=== PATIENT | female | born 1935 | race Two or more races ===

== ENCOUNTER 2017-04-21 12:48 | Emergency (ER) | payer MEDICARE, OTHER ==
[2017-04-21 12:59] VITALS: BMI 23.4
--- NOTE | 2017-04-21 13:22 | ED PDOC ---
Arrival/HPI - General Chief Complaint: Trauma Time Seen by Provider: 04/21/17 13:10 - History of Present Illness Narrative History of Present Illness (Text): 04/21/17 13:18 A 81 year old female, whose past medical history includes hypertension and hyperlipidemia, presents to the emergency department complaining of head trauma after a fall prior to arrival. Patient reports she was carrying heavy groceries and became unsteady, causing her to fall and hit her forehead. She passed out. She states she was able to get up after fall but felt dizzy. Patient denies any other injuries, headache, vision changes, neck pain, fever, chills, nausea, vomiting, abdominal pain, back pain, chest pain, shortness of breath or any other complaints. PMD: Dr. Del Angel Time/Duration: Prior to Arrival Context: Tripped Past Medical History - Provider Review Nursing Documentation Reviewed: Yes - Pulmonary Hx Respiratory Disorders: No - Neurological Hx Neurological Disorder: No - HEENT Hx HEENT Disorder: No - Renal Hx Renal Disorder: No - Endocrine/Metabolic Hx Endocrine Disorders: No - Hematological/Oncological Hx Blood Disorders: No - Integumentary Hx Dermatological Disorder: No - Musculoskeletal/Rheumatological Hx Musculoskeletal Disorders: No - Gastrointestinal Hx Gastrointestinal Disorders: No - Genitourinary/Gynecological Hx Genitourinary Disorders: No - Psychiatric Hx Psychophysiologic Disorder: No Hx Substance Use: No - Anesthesia Hx Anesthesia: No Family/Social History - Physician Review Nursing Documentation Reviewed: Yes Family/Social History: No Known Family HX Smoking Status: Current Some Days Smoker Hx Alcohol Use: No Hx Substance Use: No Allergies/Home Meds Allergies/Adverse Reactions: Allergies No Known Allergies Allergy (Unverified 04/21/17 13:18) Home Medications: Home Meds Medication Instructions Recorded Confirmed Unobtainable 04/21/17 04/21/17 Review of Systems - Physician Review All systems were reviewed & negative as marked: Yes - Review of Systems Constitutional: Other (Head trauma). absent: Fevers, Night Sweats Eyes: absent: Vision Changes Respiratory: absent: SOB Cardiovascular: Syncope. absent: Chest Pain Gastrointestinal: absent: Abdominal Pain, Nausea, Vomiting Musculoskeletal: absent: Back Pain, Neck Pain Neurological: Dizziness. absent: Headache Physical Exam Vital Signs Reviewed: Yes Vital Signs Temp Pulse Resp BP Pulse Ox 04/21/17 16:35 98.2 F 60 17 179/72 H 98 04/21/17 16:26 60 229/125 H 04/21/17 16:00 98.0 F 70 19 229/125 H 98 04/21/17 14:48 98.0 F 60 18 160/86 H 96 04/21/17 12:59 97.8 F 65 18 168/86 H 100 04/21/17 12:48 97.8 F 60 18 168/86 H 100 Temperature: Afebrile Blood Pressure: Hypertensive Pulse: Regular Respiratory Rate: Normal Appearance: Positive for: Well-Appearing, Non-Toxic, Comfortable Pain Distress: None Mental Status: Positive for: Alert and Oriented X 3 - Systems Exam Head: Present: Swelling (mild to moderate), Abrasion (Linear abrasion to mid- frontal area of forehead with mild to moderate swelling ) Pupils: Present: PERRL Extroacular Muscles: Present: EOMI Conjunctiva: Present: Normal Mouth: Present: Moist Mucous Membranes Pharnyx: Present: Normal. No: ERYTHEMA, EXUDATE Neck: Present: Normal Range of Motion. No: MIDLINE TENDERNESS, Paraspinal Tenderness Respiratory/Chest: Present: Clear to Auscultation, Good Air Exchange. No: Respiratory Distress, Accessory Muscle Use Cardiovascular: Present: Regular Rate and Rhythm, Normal S1, S2. No: Murmurs Abdomen: Present: Normal Bowel Sounds. No: Tenderness, Distention, Peritoneal Signs Back: Present: Normal Inspection. No: Midline Tenderness, Paraspinal Tenderness Upper Extremity: Present: Normal Inspection, Normal ROM, NORMAL PULSES, Neurovascularly Intact. No: Cyanosis, Edema, Tenderness, Swelling Lower Extremity: Present: Normal Inspection, NORMAL PULSES, Normal ROM, Neurovascularly Intact. No: Edema, CALF TENDERNESS, Tenderness, Swelling, Temperature Abnormalties Neurological: Present: GCS=15, CN II-XII Intact, Speech Normal, Motor Func Grossly Intact, Normal Sensory Function, Normal Cerebellar Funct Skin: Present: Warm, Dry, Normal Color. No: Rashes Psychiatric: Present: Alert, Oriented x 3, Normal Insight, Normal Concentration Medical Decision Making ED Course and Treatment: 04/21/17 13:18 Impression: A 81 year old female with head trauma after fall and syncope prior to arrival. Normal neuro exam. Evidence of forehead injury is noted. Plan: -- Head CT -- Chest xray -- EKG -- Labs -- Urinalysis -- Reassess and disposition Progress Notes: Report Date: 04/21/17 17:33 Procedure: CT Head without contrast Dictated by Sugey Torres MD Impression: Generalized atrophy. Nonspecific white matter changes. 8 mm probable left basal ganglia lacunar infarct. Intracranial atherosclerosis. Small fluid level in the right maxillary sinus. Correlate clinically for possible acute sinusitis. 04/21/17 18:22 Patient with syncopal episode, possibly mechanical but unclear. Her EKG results are noted and BP was elevated in the ED despite having taken her antihypertensive meds, requiring IV hydralazine with improvement. Old lacunar infarct on CT but no acute m/s/b. Given syncope of unknown origin, lacunar infarct on CT brain with uncontrolled hypertension, the patient needs further observation on tele but is refusing. She is however refusing to stay in the hospital. She understands the risks explained to her, including stroke, heart attack, permanent disability, and . She is fully awake, alert, and oriented x 3 and is signing out against medical advice. She signed the ama sheet. - Lab Interpretations Lab Results: 04/21/17 13:40 04/21/17 13:40 Lab Results 04/21/17 13:40: Sodium 141, Potassium 4.2, Chloride 99, Carbon Dioxide 32, Anion Gap 14, BUN 26 H, Creatinine 1.4 H, Est GFR ( Amer) 44, Est GFR ( Non-Af Amer) 36, Random Glucose 102, Calcium 10.7 H, Magnesium 1.8, Total Bilirubin 1.0, AST 37 H, ALT 33, Alkaline Phosphatase 97, Lactate Dehydrogenase 424, Total Creatine Kinase 71, Troponin I < 0.01, Total Protein 8.1, Albumin 4.5 , Globulin 3.7, Albumin/Globulin Ratio 1.2 04/21/17 13:40: Urine Color Yellow, Urine Appearance Clear, Urine pH 6.0, Ur Specific [place] 1.020, Urine Protein 30 H, Urine Glucose (UA) Negative, Urine Ketones Trace H, Urine Blood Negative, Urine Nitrate Negative, Urine Bilirubin Negative, Urine Urobilinogen 0.2, Ur Leukocyte Esterase Moderate H, Urine RBC Negative, Urine WBC 2 - 5, Ur Epithelial Cells 4 - 5, Urine Bacteria Small 04/21/17 13:40: WBC 8.5, RBC 4.23, Hgb 13.7, Hct 40.0, MCV 94.6, MCH 32.4, MCHC 34.3, RDW 12.5, Plt Count 177, MPV 11.5 H, Gran % 64.4, Lymph % (Auto) 27.2, [place] % (Auto) 5.7, Eos % (Auto) 1.5, Baso % (Auto) 1.2, Gran # 5.47, Lymph # 2.3 , [place] # 0.5, Eos # 0.1, Baso # 0.10 I have reviewed the lab results: Yes - RAD Interpretation Radiology Orders: 04/21/17 13:18 Brain [HEAD W/O CONTRAST] [CT] Stat 04/21/17 17:34 CHEST TWO VIEWS (PA/LAT) [RAD] Stat - EKG Interpretation EKG Interpretation (Text): 04/21/17 18:25 NSR @ 64 with inverted T wave in avL; normal intevals and normal axis. Interpreted by ED Physician: Yes Type: 12 lead EKG Comparison: No previous EKG avail. - Medication Orders Current Medication Orders: Discontinued Medications Hydralazine HCl (Apresoline) 10 mg IVP STAT STA Stop: 04/21/17 16:15 Last Admin: 04/21/17 16:26 Dose: 10 mg IVP Administration Document 04/21/17 16:26 AB (Rec: 04/21/17 16:27 [id number] Charges for Administration # of IVP Administrations 1 MAR Pulse and Blood Pressure Document 04/21/17 16:26 AB (Rec: 04/21/17 16:27 [id number]) Pulse Pulse Rate (60-90) 60 Blood Pressure Blood Pressure (100/60-150/90) 229/125 Sodium Chloride (Sodium Chloride 0.9%) 500 mls @ 999 mls/hr IV .Q31M STA Stop: 04/21/17 14:41 Last Admin: 04/21/17 14:17 Dose: 999 mls/hr eMAR Start Stop Document 04/21/17 14:17 AB (Rec: 04/21/17 14:18 [id number]) Intravenous Solution Start Date 04/21/17 Start Time 14:18 End Date 04/21/17 End time 14:48 Total Infusion Time 30 - Scribe Statement The provider has reviewed the documentation as recorded by the Caitlyn Daley Provider Scribe Attestation: All medical record entries made by the Quinnibe were at my direction and personally dictated by me. I have reviewed the chart and agree that the record accurately reflects my personal performance of the history, physical exam, medical decision making, and the department course for this patient. I have also personally directed, reviewed, and agree with the discharge instructions and disposition. Disposition/Present on Arrival - Present on Arrival Any Indicators Present on Arrival: No History of DVT/PE: No History of Uncontrolled Diabetes: No Urinary Catheter: No History of Decub. Ulcer: No History Surgical Site Infection Following: None - Disposition Have Diagnosis and Disposition been Completed?: Yes Diagnosis: Syncope, Poorly-controlled hypertension Disposition: AGAINST MEDICAL ADVICE Disposition Time: 18:00 Patient Plan: Other (AGAINST MEDICAL ADVICE) Condition: STABLE Discharge Instructions (ExitCare): Syncope (ED) Additional Instructions: You are leaving against medical advice. You may return to the emergency department at any time. If you choose not to do so, then follow up with your primary care doctor as soon as possible. Forms: [employer] (Greek)
[2017-04-21 13:56] LABS: URINE BILIRUBIN NEGATIVE (NEGATIVE); URINE BLOOD NEGATIVE (NEGATIVE); URINE GLUCOSE (UA) NEGATIVE (NEGATIVE); URINE KETONE TRACE mg/dL (NEGATIVE); URINE LEUKOCYTE ESTERASE MODERATE Leu/uL (NEGATIVE); URINE PROTEIN 30 mg/dL (<30 mg/dL); URINE UROBILINOGEN 0.2 E.U./dL (<1 E.U./dL)
[2017-04-21 13:57] LABS: BASO # 0.1 K/mm3 (0.0-2.0); BASO % 1.2 % (0.0-3.0); EOS # 0.1 (0.0-0.7); EOS % 1.5 % (1.5-5.0); GRAN # 5.47 (1.4-6.5); GRAN % 64.4 % (50.0-68.0); LYMPH # 2.3 (1.2-3.4); LYMPH % 27.2 % (22.0-35.0); MEAN CELL VOLUME 94.6 fl (80.0-105.0); MEAN CORPUSCULAR HEMOGLOBIN 32.4 pg (25.0-35.0); MEAN CORPUSCULAR HGB CONC 34.3 g/dl (31.0-37.0); MEAN PLATELET VOLUME 11.5 fl (7.0-11.0); MONO # 0.5 (0.1-0.6); MONO % 5.7 % (1.0-6.0); RED CELL DISTRIBUTION WIDTH 12.5 % (11.5-14.5); WHITE BLOOD COUNT 8.5 10^3/ul (4.5-11.0)
[2017-04-21 13:58] LABS: URINE APPEARANCE CLEAR (CLEAR); URINE COLOR YELLOW (YELLOW)
[2017-04-21 14:08] LABS: ALB/GLOB RATIO 1.2 (1.1-1.8); ALKALINE PHOSPHATASE 97 U/L (38-126); ALT/SGPT 33 U/L (7-56); AST/SGOT 37 U/L (14-36); BLOOD UREA NITROGEN 26 mg/dL (7-21); CALCIUM 10.7 mg/dL (8.4-10.5); CARBON DIOXIDE 32 mmol/L (21-33); CHLORIDE 99 mmol/L (98-107); GFR AFRICAN-AMERICAN 44; GLUCOSE,RANDOM 102 mg/dL (70-110); MAGNESIUM 1.8 mg/dL (1.7-2.2); POTASSIUM 4.2 mmol/L (3.6-5.0); SODIUM 141 mmol/L (132-148); TOTAL PROTEIN 8.1 g/dL (5.8-8.3)
[2017-04-21] MEDS ORDERED: Sodium Chloride 0.9% 500 ML IV STA (14:11)
[2017-04-21 14:13] LABS: URINE RBC NEGATIVE /hpf (0-2)
[2017-04-21 14:14] LABS: URINE BACTERIA SMALL (NEG)
[2017-04-21 14:20] LABS: TROPONIN I < 0.01 ng/mL
--- NOTE | 2017-04-21 16:50 | CARD ---
APPROVED REPORT EKG Measurement Heart [id number] <Conclusion> Normal sinus rhythm Normal ECG
[2017-04-21 17:05] VITALS: RESP 17
--- NOTE | 2017-04-21 17:35 | CT ---
PROCEDURE: CT HEAD WITHOUT CONTRAST. HISTORY: fell and hit head; syncope COMPARISON: None available. TECHNIQUE: Axial computed tomography images were obtained through the head/brain without intravenous contrast. Radiation dose: Total exam DLP = 726.57 MGy-cm. This CT exam was performed using one or more of the following dose reduction techniques: Automated exposure control, adjustment of the mA and/or kV according to patient size, and/or use of iterative reconstruction technique. FINDINGS: HEMORRHAGE: No intracranial hemorrhage. BRAIN: Diffuse atrophy with prominence of the ventricles and sulci noted. No mass effect or edema. 8 mm probable left basal ganglia lacunar infarct. Scattered periventricular and subcortical white matter hypodensities, which are nonspecific, but often seen with chronic microvascular ischemic disease. Please note that MRI with diffusion imaging is more sensitive in the detection of acute ischemic event. VENTRICLES: No hydrocephalus. CALVARIUM: Unremarkable. PARANASAL SINUSES: Small fluid level in the right maxillary sinus. MASTOID AIR CELLS: Unremarkable as visualized. No inflammatory changes. OTHER FINDINGS: None. IMPRESSION: Generalized atrophy. Nonspecific white matter changes. 8 mm probable left basal ganglia lacunar infarct. Intracranial atherosclerosis. Small fluid level in the right maxillary sinus. Correlate clinically for possibility of acute sinusitis.
--- NOTE | 2017-04-21 17:55 | RAD ---
HISTORY: COMPARISON: No prior. TECHNIQUE: Chest PA and lateral FINDINGS: LINES AND TUBES: None. LUNG AND PLEURA: The lungs are hyperinflated and there is peribronchial thickening with chronic changes in both lungs. No focal consolidation. HEART AND MEDIASTINUM: The heart is not enlarged. Atherosclerotic aortic arch calcifications are present. The hilar and mediastinal contours are within normal limits. SKELETAL STRUCTURES: The bony structures are within normal limits for the patient's age. VISUALIZED UPPER ABDOMEN: Normal. OTHER FINDINGS: None. IMPRESSION: No active pulmonary disease. COPD.
[2017-04-21 18:30] VITALS: BP 169/70; PULSE 65; TEMP 98; O2SAT 100
== END 2017-04-21 18:30 | disposition left against medical advice (07) ==
LOC: ED 12:48
DX: I10 Essential (primary) hypertension (principal); R55 Syncope and collapse; E78.5 Hyperlipidemia, unspecified; F17.200 Nicotine dependence, unspecified, uncomplicated
CPT/HCPCS: 70450; 71020; 80053; 81001; 82550; 83615; 83735; 84484; 85025; 87086; 93005; 96374; 99285; J0360; J7040

== ENCOUNTER 2018-07-05 13:07 | Outpatient (CLI) | payer MEDICARE | END 2018-07-05 13:08 | disposition home or self-care (01) | LOC: RAD 13:07 | DX: Z12.31 Encounter for screening mammogram for malignant neoplasm of breast (principal); M81.0 Age-related osteoporosis without current pathological fracture ==